=== PATIENT | male | born 1985 | race Caucasian/White ===

== ENCOUNTER 2022-05-07 17:42 | Emergency (ER) | payer SELFPAY ==
[~2022-05-07] VITALS: Ht 165.1 cm; Wt 87.1 kg
[2022-05-07 18:16] VITALS: BP 187/98
--- NOTE | 2022-05-07 19:18 | NUR ---
Dr. Antoine examining patient.
--- NOTE | 2022-05-07 20:00 | NUR ---
indwelling cath size 18fr inserted per ermd orders using sterile technique with a bright yellow with tinges of blood at about 750cc return. pt tolerated well. pt vocalized instant relief. urine sample collected and taken to lab.
--- NOTE | 2022-05-07 20:16 | NUR ---
37 yo m bib self with c/c of urinary retention xthis morning. pt reports 10/10 pelvic pressure. he says this happened once a few weeks ago and was told he had a uti. pt reports having a bph for about 6 months and is taking tamsulosin. andrew
[2022-05-07 20:35] LABS: APPEARANCE,URINE CLEAR (CLEAR); BILIRUBIN,URINE NEGATIVE (NEGATIVE); BLOOD, URINE 3+ (NEGATIVE); COLOR,URINE YELLOW (YELLOW); LEUKOCYTE ESTERASE ,URINE NEGATIVE (NEGATIVE); NITRITE, URINE NEGATIVE (NEGATIVE); UGLUCOSE NEGATIVE (NEGATIVE)
[2022-05-07 20:48] LABS: RBC,URINE 11-20 (MOD) /HPF (0-5); WBC,URINE 0-5 /HPF (0-5)
[2022-05-07 20:50] LABS: OTHER CASTS, URINE None Seen /LPF (None Seen); RED BLOOD CELL CASTS,URINE 0-10 /LPF (None Seen)
[2022-05-07 21:39] VITALS: BP 126/56
--- NOTE | 2022-05-07 21:40 | NUR ---
Patient discharged with v/s stable by ermd with martinez cath to follow up with urologist. Written and verbal after care instructions given and explained to parent/guardian. Parent/Guardian verbalized understanding. Ambulatorysteady gait. All questions addressed prior to discharge. Advised to follow up with PMD.
== END 2022-05-07 21:51 | disposition home or self-care (01) ==
LOC: MED 17:42
DX: R33.9 Retention of urine, unspecified (principal); N40.0 Benign prostatic hyperplasia without lower urinary tract symptoms
CPT/HCPCS: 51702; 81001; 87086; 87491; 99284